=== PATIENT | female | born 2000 | race Caucasian/White ===

== ENCOUNTER 2020-02-17 16:27 | Emergency (ER) | payer OTHER ==
[~2020-02-17] VITALS: Ht 162.6 cm; Wt 62.6 kg
[2020-02-17 16:50] VITALS: Ht 162.6 cm; Wt 62.6 kg
[2020-02-17 19:11] VITALS: BP 128/78
== END 2020-02-17 19:11 | disposition home or self-care (01) ==
LOC: ED 16:27
DX: N64.4 Mastodynia (principal)
CPT/HCPCS: 76641; Q0092